=== PATIENT | male | born 1980 | race Caucasian/White ===

== ENCOUNTER 2018-12-01 16:02 | Inpatient (IN) | payer OTHER ==
[2018-12-01] MEDS ORDERED: Nicotine Inhaler* 10 MG AMP INH PRN (16:21)
[2018-12-01] MEDS ORDERED: Mouth Piece, Nicotine* 1 EACH CARTRIDGE INH PRN (16:35)
[2018-12-01 16:42] LABS: ABS Basophils 0.1 10^3/ul (0-0.2); ABS Eosinophils 0.3 10^3/ul (0-0.6); ABS Lymphocytes 3.2 10^3/ul (1.0-4.8); ABS Monocytes 0.8 10^3/ul (0-0.8); ABS Neutrophils 5.7 10^3/ul (1.5-7.7); ABS Nucleated RBC 0 10^3/ul; Eosinophil % 3.1 %; Hematocrit 46 % (42-52); Hemoglobin 15.1 g/dl (14.0-18.0); Lymphocyte % 31.9 %; Mean Corpuscular HGB Conc 33 g/dl (31-36); Mean Corpuscular Hemoglobin 30 pg (27-31); Mean Corpuscular Volume 89 fL (80-94); Nucleated Red Blood Cells % 0.1; Platelet Count 250 10^3/ul (150-450); Red Blood Count 5.11 10^6/ul (4.00-5.40); Red Cell Distribution Width 13 % (10.5-15); White Blood Count 10.1 10^3/ul (3.5-10.8)
[2018-12-01 16:53] LABS: Urine Appearance Clear; Urine Bacteria Absent (Absent); Urine Bilirubin Negative (Negative); Urine Blood 1+ (Negative); Urine Color Yellow; Urine Glucose 1+(50 mg/dL) (Negative); Urine Ketones Negative (Negative); Urine Nitrite Negative (Negative); Urine Protein Negative (Negative); Urine Red Blood Cell Trace(0-2/hpf) (Absent); Urine Specific Gravity 1.026 (1.010-1.030); Urine Urobilinogen Negative (Negative); Urine White Blood Cell Trace(0-5/hpf) (Absent)
--- NOTE | 2018-12-01 16:54 | ED ---
Psychiatric Complaint - HPI Summary HPI Summary: This pt is a 38 y/o male presenting to [facility] c/o worsening depression. He states feeling hopeless. Pt reports he has SI thoughts and a plan to crash a car to a telephone pole. Denies HI or auditory/visual hallucinations. Denies hx of past suicide attempts. Pt has been admitted in the past to a psychiatric facility about 10 years ago. PMHx: HTN, DM, depression. He is not on medications for depression. Pt reports he did not take his DM and HTN medications yesterday or today. Denies surgeries. 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 - History Of Current Complaint Chief Complaint: EDMentalHealth Time Seen by Provider: 12/01/18 16:21 Hx Obtained From: Patient Onset/Duration: Lasting Days, Still Present Timing: Days Severity Currently: Moderate Character: Depressed Aggravating Factor(s): Nothing Alleviating Factor(s): Nothing Related History: Positive For: Prior Psychiatric Issues, Drug Abuse Counseling Has Suicidal: Reports: Thoughts, With A Plan. Denies: Demonstrates Gesture Has Homicidal: Denies: Thoughts, With A Plan - Allergies/Home Medications Allergies/Adverse Reactions: Allergies Allergy/AdvReac Type Severity Reaction Status Date / Time No Known Allergies Allergy Verified 12/01/18 16:16 PMH/Surg Hx/FS Hx/Imm Hx Endocrine/Hematology History: Reports: Hx Diabetes Cardiovascular History: Reports: Hx Hypertension Psychiatric History: Reports: Hx Depression Infectious Disease History: No Infectious Disease History: Denies: Traveled Outside the [place] in Last 30 Days - Family History Family History: grandfather who committed suicide. - Social History Alcohol Use: Daily Substance Use Type: Reports: Marijuana Smoking Status (MU): Former Smoker Review of Systems Negative: Fever, Chills Cardiovascular: Negative Respiratory: Negative Gastrointestinal: Negative Psychological: Other - POS: SI thoughts Positive: Depressed. Negative: Other - NEG: HI, auditory or visual hallucinations. All Other Systems Reviewed And Are Negative: Yes Physical Exam - Summary Physical Exam Summary: GENERAL: Patient is a well developed and nourished male who is lying comfortable in the stretcher. Patient is not in any acute respiratory distress. HEAD AND FACE: Normocephalic EYES: PERRLA, EOMI x 2. EARS: Hearing grossly intact. MOUTH: Oropharynx within normal limits. NECK: Supple, trachea is midline, no adenopathy, no JVD, no carotid bruit. CHEST: Symmetric, no tenderness at palpation LUNGS: Clear to auscultation bilaterally. No wheezing or crackles. CVS: Regular rate and rhythm, S1 and S2 present, no murmurs or gallops appreciated. ABDOMEN: Soft, non-tender. Bowel sounds are normal. No abdominal abnormal pulsations. EXTREMITIES: Full ROM in all major joints, no edema, no cyanosis or clubbing. NEURO: Alert and oriented x 3. No acute neurological deficits. Speech is normal and follows commands. SKIN: Dry and warm PSYCH: Normal affect. Positive SI with a plan. No HI. No auditory or visual hallucinations. Triage Information Reviewed: Yes Vital Signs On Initial Exam: Initial Vitals Temp Pulse Resp BP Pulse Ox 98.1 F 91 20 153/102 96 12/01/18 16:12 12/01/18 16:12 12/01/18 16:12 12/01/18 16:12 12/01/18 16:12 Vital Signs Reviewed: Yes Diagnostics - Vital Signs Vital Signs Temp Pulse Resp BP Pulse Ox 12/01/18 16:12 98.1 F 91 20 153/102 96 - Laboratory Lab Results: Lab Results 12/01/18 Range/Units 16:29 WBC 10.1 (3.5-10.8) 10^3/ul RBC 5.11 (4.00-5.40) 10^6/ul Hgb 15.1 (14.0-18.0) g/dl Hct 46 (42-52) % MCV 89 (80-94) fL MCH 30 (27-31) pg MCHC 33 (31-36) g/dl RDW 13 (10.5-15) % Plt Count 250 (150-450) 10^3/ul MPV 8.0 (7.4-10.4) fL Neut % (Auto) 56.8 % Lymph % (Auto) 31.9 % [place] % (Auto) 7.6 % Eos % (Auto) 3.1 % Baso % (Auto) 0.6 % Absolute Neuts (auto) 5.7 (1.5-7.7) 10^3/ul Absolute Lymphs (auto) 3.2 (1.0-4.8) 10^3/ul Absolute Monos (auto) 0.8 (0-0.8) 10^3/ul Absolute Eos (auto) 0.3 (0-0.6) 10^3/ul Absolute Basos (auto) 0.1 (0-0.2) 10^3/ul Absolute Nucleated RBC 0 10^3/ul Nucleated RBC % 0.1 Result Diagrams: 12/01/18 16:29 12/01/18 16:29 Lab Statement: Any lab studies that have been ordered have been reviewed, and results considered in the medical decision making process. Course/Dx - Course Assessment/Plan: Pt is a 38 y/o male who presents to the ED with worsening depression and feeling hopeless. Pt reports he has SI thoughts and a plan to crash a car to a telephone pole. Workup is remarkable for glucose of 184 and toxicology positive for cannabinoids. Pt is medically cleared. He is waiting for a mental health evaluation. Pt will be signed out to Dr. Tellez at shift change, pending mental health evaluation and disposition. - Differential Dx/Clinical Impression Provider Diagnosis: Depression, Suicidal ideation Discharge - Sign-Out/Discharge Documenting (check all that apply): Sign-Out Patient Signing out patient TO: Louis Tellez - pending MHE - Discharge Plan Condition: Stable Referrals: [facility] [Outside] - Billing Disposition and Condition Condition: STABLE - Attestation Statements Document Initiated by Scribe: Yes Documenting Scribe: Paula Ray Provider For Whom Garry is Documenting (Include Credential): Duane Steele MD Scribe Attestation: Paula Vasquez, scribed for Duane Steele MD on 12/01/18 at 1849. Scribe Documentation Reviewed: Yes Provider Attestation: The documentation as recorded by the Paula timmons accurately reflects the service I personally performed and the decisions made by me, Duane Steele MD Status of Scribe Document: Viewed
[2018-12-01 17:05] LABS: ALT 19 U/L (7-52); AST 16 U/L (13-39); Albumin 4.1 g/dL (3.2-5.2); Albumin/Globulin Ratio 1.3 (1-3); Alkaline Phosphatase 53 U/L (34-104); Anion Gap 6 mmol/L (2-11); BUN/Creatinine Ratio 17.2 (8-20); Blood Urea Nitrogen 16 mg/dL (6-24); CO2 Carbon Dioxide 29 mmol/L (22-32); Calcium 9.1 mg/dL (8.6-10.3); Chloride 101 mmol/L (101-111); EGFR Non-African American 91.4 (>60); Globulin 3.2 g/dL (2-4); Glucose 184 mg/dL (70-100); Potassium 3.9 mmol/L (3.5-5.0); Sodium 136 mmol/L (135-145); Total Protein 7.3 g/dL (6.4-8.9)
[2018-12-01 17:06] LABS: Barbiturates Urine Screen None Detected (None Detect); Benzodiazepine Urine Screen None Detected (None Detect); Urine Cannabinoids Screen Presumptive Positive (None Detect)
[2018-12-01 17:26] LABS: Acetaminophen < 15 mcg/mL; Alcohol < 10 mg/dL (<10); Salicylate < 2.50 mg/dL (<30)
[2018-12-01 17:41] LABS: TSH (Thyroid Stimulating Horm) 1.35 mcIU/mL (0.34-5.60)
--- NOTE | 2018-12-01 19:14 | ED ---
Progress - Progress Note Progress Note: Initial intent was to sign-out patient to Dr. Tellez at shift change. However, pt received disposition before my shift ended. Per yasmany Concepcion, pt will be voluntarily admitted. Dx: Substance induced mood disorder. - Consult/PCP Time Called: 18:14 Course/Dx - Course Course Of Treatment: Initial intent was to sign-out patient to Dr. Tellez at shift change. However, pt received disposition before my shift ended. Per yasmany Concepcion, pt will be voluntarily admitted. Dx: Substance induced mood disorder. - Diagnoses Provider Diagnoses: Substance induced mood disorder Discharge - Sign-Out/Discharge Documenting (check all that apply): Patient Departure - ADMIT BHU - Discharge Plan Condition: Stable Disposition: PSYCHIATRIC FACILITY[facility] Referrals: [facility] [Outside] - Attestation Statements Document Initiated by Scribe: Yes Documenting Scribe: Tiffanie Jalloh Provider For Whom Scribe is Documenting (Include Credential): Dr. Duane Steele MD Scribe Attestation: I, Tiffanie Jlaloh, scribed for Dr. Duane Steele MD on 12/01/18 at 1940. Status of Scribe Document: Ready
[2018-12-01] MEDS ORDERED: Al Hydrox/Mg Hydrox/Simet LIQ* 30 ML UDC PO PRN (20:29)
[2018-12-01] MEDS ORDERED: Acetaminophen TAB* 325 MG PO PRN (20:30)
[2018-12-01] MEDS ORDERED: Nicotine GUM* 2 MG PO PRN (20:31)
[2018-12-01] MEDS: metFORMIN* 1,000 MG TAB PO SCH (21:14)
[2018-12-01] MEDS: Lisinopril TAB* 10 MG PO SCH (21:14)
[2018-12-02 07:42] LABS: HDL Cholesterol 46.2 mg/dL
[2018-12-02] MEDS ORDERED: Aspirin EC TAB* 81 MG TAB.EC PO SCH ×2 (09:00→21:00)
[2018-12-02] MEDS ORDERED: hydrOXYzine HCL TAB* 50 MG PO PRN (11:08)
[2018-12-02] MEDS: Multivitamins/Minerals TAB PO SCH (13:15)
[2018-12-02] MEDS: Nicotine PATCH 14 MG/24 HR* PATCH TRANSDERM SCH (13:20)
[2018-12-02] MEDS: Lisinopril TAB* 10 MG PO SCH (13:24)
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
[2018-12-02] MEDS: metFORMIN* 1,000 MG TAB PO SCH (17:24)
[2018-12-02] MEDS: GuaiFENesin DM* 5 ML UDC PO PRN ×2 (18:06→22:13)
[2018-12-02] MEDS ORDERED: Nicotine Patch Removal NOTE FOLLOW UP SCH (21:00)
[2018-12-02] MEDS ORDERED: Lisinopril TAB* 10 MG PO SCH (21:00)
[2018-12-02] MEDS ORDERED: Nicotine Inhaler* 10 MG AMP INH PRN (21:34)
[2018-12-03] MEDS: Multivitamins/Minerals TAB PO SCH (08:51)
[2018-12-03] MEDS: Nicotine PATCH 14 MG/24 HR* PATCH TRANSDERM SCH (08:51)
[2018-12-03 09:08] VITALS: BP 133/73
== END 2018-12-03 12:51 | disposition home or self-care (01) | DRG 754 ==
LOC: ED 16:02 → BSU 19:11
PROVIDERS: ADMIT Psychiatry & Neurology Psychiatry; ATTEND Psychiatry & Neurology Psychiatry
DX: F43.21 Adjustment disorder with depressed mood (principal); R45.851 Suicidal ideations; F10.10 Alcohol abuse, uncomplicated; F12.90 Cannabis use, unspecified, uncomplicated; Y90.0 Blood alcohol level of less than 20 mg/100 ml; I10 Essential (primary) hypertension; E11.9 Type 2 diabetes mellitus without complications; Z79.84 Long term (current) use of oral hypoglycemic drugs; Z79.82 Long term (current) use of aspirin; Z79.899 Other long term (current) drug therapy; Z81.1 Family history of alcohol abuse and dependence; Z81.8 Family history of other mental and behavioral disorders
CPT/HCPCS: 36415; 80053; 80061; 80307; 80320; 80329; 81003; 81015; 83036; 84443; 85025; 87086; 99222; 99238; 99284; A9270-GY; G0480

== ENCOUNTER 2021-12-05 19:58 | Inpatient (IN) ==
[2021-12-05 21:13] LABS: ALT 27 U/L (7-52); AST 18 U/L (13-39); Albumin 4.7 g/dL (3.2-5.2); Albumin/Globulin Ratio 1.3 (1-3); Alkaline Phosphatase 64 U/L (35-149); Anion Gap 11 mmol/L (2-11); Blood Urea Nitrogen 20 mg/dL (6-24); CO2 Carbon Dioxide 25 mmol/L (22-32); Calcium 9.7 mg/dL (8.6-10.3); Chloride 100 mmol/L (101-111); Globulin 3.5 g/dL (2-4); Glucose 177 mg/dL (70-100); Potassium 3.5 mmol/L (3.5-5.0); Sodium 136 mmol/L (135-145); Total Protein 8.2 g/dL (6.4-8.9); eGFR CKD-EPI 84.3 (>60)
[2021-12-05 21:22] LABS: Hematocrit 52 % (42-52); Hemoglobin 17.4 g/dL (14.0-18.0); Mean Corpuscular HGB Conc 33 g/dL (31-36); Mean Corpuscular Hemoglobin 30 pg (27-31); Mean Corpuscular Volume 91 fL (80-94); Red Blood Count 5.78 10^6 /uL (4.18-5.48); Red Cell Distribution Width 13 % (10-15); White Blood Count 14.3 10^3/uL (3.5-10.8)
[2021-12-05 21:48] LABS: ABS Basophils 0.1 10^3/ul (0-0.2); ABS Eosinophils 0.3 10^3/ul (0-0.6); ABS Lymphocytes 4.3 10^3/ul (1.0-4.8); ABS Monocytes 1.5 10^3/ul (0-0.8); ABS Neutrophils 8.2 10^3/ul (1.5-7.7); ABS Nucleated RBC 0.1 10^3/ul; Eosinophil % 2.1 %; Lymphocyte % 29.9 %; Mean Platelet Volume 7.8 fL (7.4-10.4); Nucleated Red Blood Cells % 0.5; Platelet Count 342 10^3/uL (150-450)
[2021-12-05 22:24] LABS: Urine Benzodiazepine Screen None Detected (None Detect); Urine Cannabinoids Screen Presumptive Positive (None Detect); Urine Opiates Screen None Detected (None Detect)
[2021-12-05 22:38] LABS: Acetaminophen < 15 mcg/mL; Alcohol, S < 13 mg/dL (<13); Salicylate < 2.50 mg/dL (<30)
[2021-12-05 22:54] LABS: TSH Ultra Thyroid Stim Horm 2.12 mcIU/mL (0.34-5.60)
[2021-12-06] MEDS ORDERED: DULoxetine DR 30 mg CAP PO ONE (02:00)
[2021-12-06] MEDS ORDERED: Al Hydrox/Mg Hydrox/Simet LIQ 30 ML UDC PO PRN (10:14)
[2021-12-06] MEDS ORDERED: Diazepam INJ CARPUJECT 5 MG/ML IM ONE (10:38)
[2021-12-07] MEDS ORDERED: chlorproMAZINE 25 MG/ML 2 ML (50 MG) ONE (08:54)
[2021-12-07] MEDS ORDERED: DULoxetine DR 30 mg CAP PO SCH (09:00)
[2021-12-07] MEDS ORDERED: DULoxetine DR 60 mg CAP PO SCH (09:00)
[2021-12-07] MEDS ORDERED: chlorproMAZINE 25 MG/ML 2 ML (50 MG) IM ONE (09:00)
[2021-12-08 07:40] LABS: HDL Cholesterol 30.8 mg/dL
[2021-12-08] MEDS ORDERED: DULoxetine DR 30 mg CAP PO SCH (09:00)
[2021-12-09] MEDS ORDERED: Lorazepam PYXIS KEY PRN (19:31)
[2021-12-09] MEDS ORDERED: LORazepam 2 mg VIAL 1 ml IM ONE (20:00)
[2021-12-09] MEDS ORDERED: Haloperidol 5 mg/ml SDV IV/IM 5 MG/ML AMP IM ONE (20:00)
[2021-12-09] MEDS ORDERED: diPHENhydraMINE IV 50 MG/ML 1 ml VIAL (BENADRYL) IM ONE (20:00)
[2021-12-11 09:12] VITALS: BP 128/70
== END 2021-12-11 15:40 | disposition home or self-care (01) | DRG 753 ==
LOC: ED 19:58 → BSU 12-06 10:14
PROVIDERS: ADMIT Psychiatry & Neurology Psychiatry; ATTEND Student in an Organized Health Care Education/Training Program

== ENCOUNTER 2024-07-02 13:08 | Inpatient (IN) ==
[2024-07-02] MEDS ORDERED: Lorazepam PYXIS KEY PRN (13:14)
[2024-07-02] MEDS ORDERED: LORazepam 2 mg VIAL 1 ml ONE (13:15)
[2024-07-02] MEDS: LORazepam 2 mg VIAL 1 ml IM ONE (13:20)
[2024-07-02] MEDS: Haloperidol 5 mg/ml SDV IV/IM 5 MG/ML AMP IM ONE (13:20)
[2024-07-02 14:23] LABS: Urine Appearance Clear; Urine Bilirubin Negative (Negative); Urine Blood Negative (Negative); Urine Color Yellow; Urine Glucose Negative (Negative); Urine Ketones Trace (Negative); Urine Nitrite Negative (Negative); Urine Protein 1+ (>=30 mg/dL) (Negative); Urine Specific Gravity 1.023 (1.002-1.030); Urine Urobilinogen Negative (Negative); Urine pH 5.5 (5.0-8.0)
[2024-07-02 14:40] LABS: Urine Benzodiazepine Screen None Detected (None Detect); Urine Cannabinoids Screen Presumptive Positive (None Detect); Urine Opiates Screen None Detected (None Detect)
[2024-07-02 14:48] LABS: Urine Bacteria Absent /HPF (Absent); Urine Red Blood Cell Trace(0-2/hpf) /HPF (0-Trace); Urine Squamous Epithelial Cell Present /HPF (Absent); Urine White Blood Cell Trace(0-5/hpf) /HPF (0-Trace)
[2024-07-03 00:18] LABS: Hematocrit 36.7 % (38-53); Hemoglobin 12.2 g/dL (13.2-16.3); Mean Corpuscular Hemoglobin 29.8 pg (27-33); Mean Corpuscular Hgb Conc 33.2 g/dL (31-36); Mean Corpuscular Volume 89.6 fL (80-97); Mean Platelet Volume 7.8 fL (7.5-11.2); Platelet Count 306 10^3/uL (150-450); Red Cell Distribution Width 13.6 % (12-17); White Blood Count 11.6 10^3/uL (3.6-10.2)
[2024-07-03 00:37] LABS: ALT 16 U/L (7-52); AST 20 U/L (13-39); Acetaminophen < 15 mcg/mL; Albumin 3.6 g/dL (3.2-5.2); Albumin/Globulin Ratio 1.3 (1-3); Alcohol, S < 13 mg/dL (<13); Alkaline Phosphatase 56 U/L (35-149); Anion Gap 10 mmol/L (2-16); Blood Urea Nitrogen 25 mg/dL (6-24); CO2 Carbon Dioxide 26 mmol/L (22-32); Calcium 8.8 mg/dL (8.6-10.3); Chloride 102 mmol/L (101-111); Globulin 2.8 g/dL (2-4); Glucose 183 mg/dL (70-100); Potassium 3.8 mmol/L (3.5-5.0); Salicylate < 2.50 mg/dL (<30); Sodium 138 mmol/L (135-145); Total Bilirubin 0.4 mg/dL (0.2-1.0); Total Protein 6.4 g/dL (6.4-8.9); eGFR CKD-EPI 108.7 (>60)
[2024-07-03 00:52] LABS: TSH Ultra Thyroid Stim Horm 2.47 mcIU/mL (0.34-5.60)
[2024-07-03 01:19] LABS: ABS Basophils 0.1 10^3/uL (0.0-0.1); ABS Eosinophils 0.4 10^3/uL (0.0-0.5); ABS Lymphocytes 3.6 10^3/uL (1.0-4.8); ABS Monocytes 1.6 10^3/uL (0.0-1.1); ABS Neutrophils 5.9 10^3/uL (1.5-7.6); ABS Nucleated RBC 0.03 10^3/ul; Eosinophil % 3.4 %; Lymphocyte % 31.4 %; Nucleated Red Blood Cells % 0.3 %/100WBC (0.0-0.8)
[2024-07-03] MEDS: CMCS: Atomoxetine 40 mg CAP (NF) PO SCH (08:38)
[2024-07-03] MEDS: chlorproMAZINE 25 MG/ML 2 ML (50 MG) IM ONE ×2 (15:45)
[2024-07-04 08:27] LABS: HDL Cholesterol 37.3 mg/dL
[2024-07-07] MEDS: chlorproMAZINE 25 MG/ML 2 ML (50 MG) ONE ×2 (05:32)
[2024-07-11] MEDS: Paliperidone SUSTENNA 234 MG/1.5 ML IM ONE (13:21)
[2024-07-12] MEDS: Lidocaine PATCH 5% PATCH TRANSDERM SCH (20:04)
[2024-07-14] MEDS: Paliperidone SUSTENNA 156 MG/1 ML IM ONE (13:45)
[2024-07-15 08:56] VITALS: BP 145/90
== END 2024-07-15 10:35 | disposition home or self-care (01) | DRG 753 ==
LOC: ED 13:08 → EDHOLD 07-03 15:47 → BSU 07-03 15:52
PROVIDERS: ADMIT Psychiatry & Neurology Addiction Psychiatry; ATTEND Student in an Organized Health Care Education/Training Program